=== PATIENT | female | born 1970 | race African-American/Black ===

== ENCOUNTER 2017-05-09 08:14 | Emergency (ER) | payer OTHER ==
[~2017-05-09] VITALS: Ht 162.6 cm; Wt 65.8 kg
[~2017-05-09 08:14] MED LIST: ACCUNEB SO1.25 MG/1 INH; ALBUTEROL2.5 MG/0.5 INH; BUTALB-APAP-CA1 EACH PO; CIPROFLOXACIN500 M1 PO; HYDROCODON-ACE1 EAC7; IBUPROFEN 600600 M1; KEFLEX500 MG PO; KENALOG60 GM TP; LISINOPRIL10 MG PO; NORCO 5-325 TA1 EACH PO; PERCOCET 5-3251 EACH PO; PREDNISONE 20 M20 MG PO; VALIUM5 MG PO; VITAMIN D 5050000 I1 PO; ZOFRAN ODT4 MG PO
[2017-05-09 08:36] LABS: URINE BILIRUBIN NEGATIVE (Negative); URINE BLOOD NEGATIVE (Negative); URINE COLOR YELLOW; URINE GLUCOSE-RANDOM* NEGATIVE (Negative); URINE KETONES NEGATIVE (Negative); URINE LEUKOCYTES-REFLEX NEGATIVE (Negative); URINE PROTEIN (DIPSTICK) NEGATIVE (Negative); URINE UROBILINOGEN 0.2 E.U./dl (0.2-1.0)
[2017-05-09] MEDS ORDERED: FLEXERIL PO (10:00)
[2017-05-09] MEDS ORDERED: OXYCODONE HCL 55 MG PO (10:00)
== END 2017-05-09 11:05 | disposition home or self-care (01) ==
LOC: ER 08:14
PROVIDERS: Emergency Medicine
DX: M54.5 Low back pain (principal); I10 Essential (primary) hypertension; J45.909 Unspecified asthma, uncomplicated; F41.9 Anxiety disorder, unspecified; F17.210 Nicotine dependence, cigarettes, uncomplicated; F10.99 Alcohol use, unspecified with unspecified alcohol-induced disorder; Z90.711 Acquired absence of uterus with remaining cervical stump

== ENCOUNTER 2021-05-03 06:14 | Emergency (ER) | payer OTHER ==
[~2021-05-03] VITALS: Ht 160 cm; Wt 78.9 kg
[~2021-05-03 06:14] MED LIST changes: +FLEXERIL PO; +OXYCODONE HCL 55 MG PO
[2021-05-03] MEDS ORDERED: BUSPIRONE HCL10 MG PO (06:39)
[2021-05-03] MEDS ORDERED: OMEPRAZOLE 20 M20 M1 PO (06:39)
[2021-05-03] MEDS ORDERED: FAMOTIDINE 10 M10 MG PO (06:39)
[2021-05-03 06:59] LABS: URINE BILIRUBIN NEGATIVE (Negative); URINE BLOOD NEGATIVE (Negative); URINE CLARITY CLEAR; URINE COLOR YELLOW; URINE GLUCOSE-RANDOM* NEGATIVE (Negative); URINE KETONES TRACE (Negative); URINE LEUKOCYTES-REFLEX TRACE (Negative); URINE NITRITE-REFLEX NEGATIVE (Negative); URINE PROTEIN (DIPSTICK) TRACE (Negative); URINE SPECIFIC GRAVITY 1.025 (1.005-1.035); URINE UROBILINOGEN 0.2 E.U./dl (0.2-1.0)
[2021-05-03 07:20] VITALS: BP 132/74
--- NOTE | 2021-05-03 07:20 | EKG ---
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 : 1970 Requested By: Luca Arredondo Order Number: [id number] MD: Jonathan Donis Measurements Intervals [place] Rate: 51 P: 48 DE: 168 QRS: -7 QRSD: 86 T: 30 QT: 449 QTc: 414 Interpretive Statements Sinus rhythm Left ventricular hypertrophy Compared to ECG 08/31/2016 09:28:59 Left ventricular hypertrophy now present Sinus bradycardia no longer present ST (T wave) deviation no longer present Electronically Signed On 05-03-2021 7:20:21 CDT by Jonathan Donis [email or web address] <ELECTRONICALLY SIGNED> By: Jonathan Donis MD, [facility] 05/03/21 0720 [id number] [id number] Jonathan Donis MD, FACC /EPI
== END 2021-05-03 07:20 | disposition home or self-care (01) ==
LOC: ER 06:14
PROVIDERS: Emergency Medicine
DX: R00.2 Palpitations (principal); I10 Essential (primary) hypertension; F41.9 Anxiety disorder, unspecified; J45.909 Unspecified asthma, uncomplicated; F17.210 Nicotine dependence, cigarettes, uncomplicated; Z90.711 Acquired absence of uterus with remaining cervical stump; Z79.51 Long term (current) use of inhaled steroids; Z79.891 Long term (current) use of opiate analgesic; Z79.899 Other long term (current) drug therapy

== ENCOUNTER 2021-08-25 21:27 | Emergency (ER) | payer OTHER ==
[~2021-08-25] VITALS: Ht 160 cm; Wt 79.8 kg
[~2021-08-25 21:27] MED LIST changes: +BUSPIRONE HCL10 MG PO; +FAMOTIDINE 10 M10 MG PO; +OMEPRAZOLE 20 M20 M1 PO
[2021-08-25 22:39] LABS: BASOPHILS 1.1 % (0.0-2.0); EOSINOPHILS 1.3 % (0.0-3.0); HEMATOCRIT 37.9 % (37.0-47.0); HEMOGLOBIN 12.6 gm/dL (12.0-15.0); LYMPHOCYTES 28.7 % (24.0-44.0); MCH 28.1 pg (26.0-34.0); MCHC 33.2 g/dL (28.0-37.0); MCV 84.5 fL (80.0-100.0); MONOCYTES 11.2 % (1.0-8.0); PLATELET COUNT 245 thou/uL (150-400); POLYS 57.7 % (36.0-66.0); RBC 4.48 mil/uL (4.20-5.00); RDW 14.4 % (10.5-14.5); WBC 5.2 thou/uL (4.0-11.0)
[2021-08-25 22:42] LABS: CALCIUM 9.7 mg/dL (8.5-10.1); CREATININE 0.8 mg/dL (0.6-1.0); POTASSIUM 3.9 mmol/L (3.5-5.1)
[2021-08-25 22:52] LABS: ALBUMIN 3.8 g/dL (3.4-5.0); TOTAL BILIRUBIN 0.5 mg/dL (0.2-1.0)
[2021-08-25 23:38] VITALS: BP 122/78
--- NOTE | 2021-08-26 11:22 | EKG ---
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 : 1970 Requested By: Kash Crocker Order Number: [id number] MD: Eduar Barahona Measurements Intervals [place] Rate: 52 P: 13 UT: 194 QRS: 6 QRSD: 77 T: 49 QT: 463 QTc: 431 Interpretive Statements Sinus bradycardia RSR' in V1 or V2, probably normal variant Compared to ECG 05/03/2021 06:39:57 No significant change was found Electronically Signed On 08-26-2021 11:22:15 [employer] OPERATOR by Eduar Barahona [email or web address] <ELECTRONICALLY SIGNED> By: Eduar Barahona MD, [facility] 08/26/21 1122 [id number] 53 Eduar Barhaona MD, FACC /EPI
== END 2021-08-25 23:39 | disposition home or self-care (01) ==
LOC: ER 21:27
PROVIDERS: Emergency Medicine
DX: G43.909 Migraine, unspecified, not intractable, without status migrainosus (principal); Z20.822 Contact with and (suspected) exposure to COVID-19; I10 Essential (primary) hypertension; J45.909 Unspecified asthma, uncomplicated; F17.210 Nicotine dependence, cigarettes, uncomplicated; F41.9 Anxiety disorder, unspecified; Z98.51 Tubal ligation status; Z90.711 Acquired absence of uterus with remaining cervical stump; Z79.51 Long term (current) use of inhaled steroids; Z79.899 Other long term (current) drug therapy